=== PATIENT | male | born 1990 | race Caucasian/White ===

== ENCOUNTER 2017-02-28 18:31 | Emergency (ER) | payer OTHER, BC ==
[~2017-02-28] VITALS: Ht 182.9 cm; Wt 80.3 kg
[~2017-02-28 18:31] MED LIST: ALAVERT10 MG PO; ALLEGRA ALLERG180 MG PO; BACTRIM DS TAB1 EACH PO; BENADRYL25 MG PO; BENTYL10 MG PO; CEPHALEXIN500 MG PO; CLARITIN-D 241 EACH PO; CRUTCH1 EACH; DAYPRO600 MG PO; IBUPROFEN600 MG PO; IBUPROFEN800 MG PO; ISENTRESS400 MG PO; LOMOTIL TABLET1 EACH PO; MONTELUKAST SOD10 MG PO; NAPROSYN500 MG PO; NEXIUM20 MG PO; NORCO 5-325 TA1 EACH PO; OXYCODONE-ACET1 EAC1 PO; PEPCID20 MG PO; PERCOCET 5-3251 EACH PO; PREDNISONE20 MG PO; PROMETHAZINE HC25 M1 PO; TRAMADOL HCL50 MG PO; TRUVADA 200 MG1 EACH PO; VICODIN 5-5001 EACH PO; ZOFRAN ODT4 MG PO
--- NOTE | 2017-03-01 15:18 | EKG ---
[facility] [address] [facility] [place] [address] Signed Sinus tachycardia Right atrial enlargement Borderline ECG No previous ECGs available Confirmed by FLOYD MURGUIA MD ([id number] on 03/01/2017 3:18:13 PM Electronically Signed By: FLOYD MURGUIA MD 03/01/17 1518 PATIENT NAME: SHABNAM MURRELL Electrocardiogram DATE OF : 89 PHYSICIAN: FLOYD MURGUIA MD REPORT #: [id number] REPORT IS CONFIDENTIAL AND NOT TO BE RELEASED WITHOUT AUTHORIZATION
== END 2017-02-28 22:13 | disposition home or self-care (01) ==
LOC: ED 18:31
DX: R00.0 Tachycardia, unspecified (principal); Z90.49 Acquired absence of other specified parts of digestive tract
CPT/HCPCS: 71010; 80053; 84436; 84479; 84480; 84484; 85025; 85379; 93005; 93010; 96374; 99284; J1885; J7030

== ENCOUNTER 2017-03-26 11:19 | Emergency (ER) | payer OTHER, BC ==
[~2017-03-26] VITALS: Ht 182.9 cm; Wt 80.3 kg
== END 2017-03-26 14:07 | disposition home or self-care (01) ==
LOC: ED 11:19
DX: R10.12 Left upper quadrant pain (principal); J45.909 Unspecified asthma, uncomplicated; Z90.49 Acquired absence of other specified parts of digestive tract
CPT/HCPCS: 74177; 80053; 81001; 83690; 85025; 96374; 96375; 99284; J1170; J2405; Q9967

== ENCOUNTER 2017-03-27 13:10 | Emergency (ER) | payer OTHER, BC ==
[~2017-03-27] VITALS: Ht 182.9 cm; Wt 80.3 kg
== END 2017-03-27 16:50 | disposition home or self-care (01) ==
LOC: ED 13:10
DX: R10.12 Left upper quadrant pain (principal); Z90.49 Acquired absence of other specified parts of digestive tract
CPT/HCPCS: 71020; 74020; 80053; 81001; 83690; 85025; 96372; 99283; J1885

== ENCOUNTER 2017-06-07 18:11 | Emergency (ER) | payer OTHER, BC ==
[~2017-06-07] VITALS: Ht 182.9 cm; Wt 80.3 kg
[2017-06-07] MEDS ORDERED: ISENTRESS400 MG PO (20:33)
[2017-06-07] MEDS ORDERED: CEPHALEXIN500 MG PO (20:33)
[2017-06-07] MEDS ORDERED: TRUVADA 200 MG1 EACH PO (20:33)
== END 2017-06-07 20:49 | disposition home or self-care (01) ==
LOC: ED 18:11
DX: S61.231A Puncture wound without foreign body of left index finger without damage to nail, initial encounter (principal); W45.8XXA Other foreign body or object entering through skin, initial encounter; Y93.89 Activity, other specified; Y92.149 Unspecified place in prison as the place of occurrence of the external cause
CPT/HCPCS: 84460; 86703; 86704; 86706; 86707; 86709; 86803; 87340; 87350; 99283

== ENCOUNTER 2017-09-29 09:23 | Emergency (ER) | payer OTHER ==
[~2017-09-29] VITALS: Ht 182.9 cm; Wt 79.4 kg
[2017-09-29] MEDS ORDERED: NORCO 5-325 TA1 EACH PO (13:36)
[2017-09-29] MEDS ORDERED: ZOFRAN ODT4 MG PO (13:36)
== END 2017-09-29 14:05 | disposition home or self-care (01) ==
LOC: ED 09:23
DX: K29.70 Gastritis, unspecified, without bleeding (principal)
CPT/HCPCS: 74022; 74177; 80053; 83690; 85025; 96361; 96374; 96375; 99284; J1170; J2405; J7120; Q9967

== ENCOUNTER 2017-10-23 15:58 | Emergency (ER) | payer OTHER ==
[~2017-10-23] VITALS: Ht 182.9 cm; Wt 79.4 kg
== END 2017-10-23 17:40 | disposition home or self-care (01) ==
LOC: ED 15:58
DX: S50.02XA Contusion of left elbow, initial encounter (principal); W22.8XXA Striking against or struck by other objects, initial encounter; Y92.89 Other specified places as the place of occurrence of the external cause; Y99.0 Civilian activity done for income or pay
CPT/HCPCS: 73080; 99283

== ENCOUNTER 2018-05-11 19:53 | Emergency (ER) | payer OTHER ==
[~2018-05-11] VITALS: Ht 182.9 cm; Wt 78.5 kg
== END 2018-05-11 20:52 | disposition home or self-care (01) ==
LOC: ED 19:53
DX: S46.911A Strain of unspecified muscle, fascia and tendon at shoulder and upper arm level, right arm, initial encounter (principal); S50.01XA Contusion of right elbow, initial encounter; Z90.49 Acquired absence of other specified parts of digestive tract; Y04.0XXA Assault by unarmed brawl or fight, initial encounter
CPT/HCPCS: 73030; 73080; 99283

== ENCOUNTER 2019-08-02 20:41 | Emergency (ER) | payer OTHER ==
[~2019-08-02] VITALS: Ht 180.3 cm; Wt 81.7 kg
[~2019-08-02 20:41] MED LIST changes: +ALEVE220 MG PO; +NORCO 7.5-3251 EACH PO; +ULTRAM50 MG PO
[2019-08-02] MEDS ORDERED: NORCO 5-325 TA1 EACH PO (21:44)
== END 2019-08-02 22:00 | disposition home or self-care (01) ==
LOC: ED 20:41
DX: S83.91XA Sprain of unspecified site of right knee, initial encounter (principal); Z90.89 Acquired absence of other organs; W19.XXXA Unspecified fall, initial encounter; Y99.0 Civilian activity done for income or pay
CPT/HCPCS: 73560; 99283-25; A9270

== ENCOUNTER 2021-04-24 16:05 | Emergency (ER) | payer OTHER ==
[~2021-04-24] VITALS: Ht 180.3 cm; Wt 81.7 kg
--- OUTSIDE RECORDS SUMMARY | 2021-04-24 16:08 | XMS ---
PreManage Notification: SHABNAM MURRELL Security Securities Consultant Events No recent Security Events currently on file [facility] There are no care providers on record at this time. Bobby has no Care Guidelines for this patient. Care History Medical/Surgical 10/25/2017 [facility] - Please refer patient to PCP office for not emergent ED visits. Clinic is willing to do same day appointments if needed. Care Recommendation: This patient has had 5 or more Emergency Department visits in the last 12 months.\T\ nbsp; Patient requires education on the scope and purpose of the ED as an acute care provider not a Primary Care Provider and should not be utilized for chronic conditions.\T\nbsp; If patient returns to ED please contact Community Health WorkerMaura at [phone]. These are guidelines and the provider should exercise clinical judgment when providing care. E.D. VISIT COUNT (12 MO.) 1 [facility] TOTAL 1 NOTE: Visits indicate total known visits. ED/UCC VISIT TRACKING (12 MO.) 04/24/2021 16:07 [facility] TYPE: Emergency COMPLAINT: - FALL,HURT LOWER BACK INPATIENT VISIT TRACKING (12 MO.) No inpatient visits to display in this time frame [email or web address]
[2021-04-24] MEDS ORDERED: ALLEGRA-D 24 H1 EACH PO (19:09)
[2021-04-24] MEDS ORDERED: HYDROCODON-ACE1 EA10 PO (20:04)
== END 2021-04-24 20:29 | disposition home or self-care (01) ==
LOC: ED 16:05
DX: S50.02XA Contusion of left elbow, initial encounter (principal); S50.01XA Contusion of right elbow, initial encounter; S30.0XXA Contusion of lower back and pelvis, initial encounter; W10.9XXA Fall (on) (from) unspecified stairs and steps, initial encounter; Z79.899 Other long term (current) drug therapy
CPT/HCPCS: 72070; 72100; 73030; 73080; 99283-25